=== PATIENT | female | born 2000 | race Caucasian/White ===

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

== ENCOUNTER 2020-07-09 10:50 | Emergency (ER) | payer OTHER, BC ==
[~2020-07-09] VITALS: Ht 162.6 cm; Wt 63.6 kg
[~2020-07-09 10:50] MED LIST changes: +MIRENA52 MG IY
[2020-07-09 11:09] VITALS: BP 110/73; TEMP 98.7
[2020-07-09 12:12] LABS: COLLECTION METHOD CLEAN CATCH
[2020-07-09 12:25] LABS: MUCOUS Present /lpf; PH 6 (5-8); URINE APPEARANCE Hazy; URINE BACTERIA Rare /hpf; URINE BILIRUBIN Negative (NEGATIVE); URINE BLOOD Negative (NEGATIVE); URINE COLOR Yellow; URINE GLUCOSE Negative (NEGATIVE); URINE KETONE Negative (NEGATIVE); URINE LEUKOCYTE ESTERASE Negative (NEGATIVE); URINE NITRATE Negative (NEGATIVE); URINE PROTEIN(semi-quant) Negative (NEGATIVE); URINE RBC 0-2 /hpf; URINE UROBILINOGEN Negative (NEGATIVE)
[2020-07-09] MEDS ORDERED: FLAGYL500 MG PO (13:36)
[2020-07-09 14:04] VITALS: PULSE 90
== END 2020-07-09 14:04 | disposition home or self-care (01) ==
LOC: COL.ER 10:50
PROVIDERS: Physician Assistant
DX: N76.0 Acute vaginitis (principal); Z32.02 Encounter for pregnancy test, result negative